=== PATIENT | male | born 1955 | race Caucasian/White ===

== ENCOUNTER 2018-10-16 10:45 | Inpatient (IN) | payer OTHER ==
[~2018-10-16] VITALS: Ht 175.3 cm; Wt 81.1 kg
[2018-10-16] MEDS ORDERED: ATOR20TA86 PO (11:23)
[2018-10-16] MEDS ORDERED: METH5TAB2 PO (11:23)
[2018-10-16] MEDS ORDERED: HYDR-3245 PO (11:23)
[2018-10-16] MEDS ORDERED: GABA600T2 PO (11:23)
[2018-10-16 11:26] VITALS: BP 116/78
[2018-10-16] MEDS ORDERED: LACTATED RINGERS 1,000 ML IV SCH (11:48)
[2018-10-16] MEDS ORDERED: BUPIVACAINE/PF-EPI 0.5% 1:200K ONE (13:18)
[2018-10-16] MEDS ORDERED: OXYcodone IR 5MG TABLET PO ONE (13:30)
[2018-10-16] MEDS ORDERED: GABAPENTIN 300 MG CAPSULE PO ONE (13:30)
[2018-10-16] MEDS ORDERED: ACETAMINOPHEN 500 MG TABLET PO ONE (13:30)
[2018-10-16] MEDS ORDERED: FENTANYL PF 250 MCG/5ML ONE ×2 (13:41→14:48)
[2018-10-16] MEDS ORDERED: MIDAZOLAM 1 MG/ML, 2ML ONE (13:54)
[2018-10-16] MEDS ORDERED: EPHEDRINE 50 MG/ML, 1ML ONE (13:57)
[2018-10-16] MEDS ORDERED: CEFOTETAN 2 GM ONE (13:57)
[2018-10-16] MEDS ORDERED: OXYcodone 5 MG/5 ML ORAL.SOL UDC PO PRN (15:00)
[2018-10-16] MEDS ORDERED: LABETALOL 5MG/ML, 20ML IV PRN (15:00)
[2018-10-16] MEDS ORDERED: MEPERIDINE/PF 25MG/0.5ML IVPush PRN (15:00)
[2018-10-16] MEDS ORDERED: DIPHENHYDRAMINE 50 MG/ML, 1ML IVPush PRN ×2 (15:00→19:30)
[2018-10-16] MEDS ORDERED: hydrALAzine 20 MG/ML, 1ML IV PRN (15:00)
[2018-10-16] MEDS ORDERED: HALOPERIDOL 5 MG/ML IV PRN (15:00)
[2018-10-16] MEDS ORDERED: PROMETHAZINE 25 MG/ML, 1ML IV PRN (15:00)
[2018-10-16] MEDS ORDERED: DEXAMETHASONE 4 MG/ML, 1ML ONE (16:04)
[2018-10-16] MEDS ORDERED: CEFAZOLIN 1,000 MG ONE (16:04)
[2018-10-16] MEDS ORDERED: PROPOFOL 10 MG/ML, 20ML ONE (16:04)
[2018-10-16] MEDS ORDERED: ONDANSETRON 2MG/ML, 2ML ONE (16:04)
[2018-10-16] MEDS ORDERED: GLYCOPYRROLATE 0.2MG/1ML, 5ML ONE (16:04)
[2018-10-16] MEDS ORDERED: SUCCINYLCHOLINE 20 MG/ML, 10ML ONE (16:04)
[2018-10-16] MEDS ORDERED: ROCURONIUM 10MG/ML,5ML ONE (16:04)
[2018-10-16] MEDS ORDERED: NEOSTIGMINE 1 MG/ML, 10ML ONE (16:04)
[2018-10-16] MEDS ORDERED: OXYcodone 5 MG/5 ML ORAL.SOL UDC ONE (17:14)
[2018-10-16] MEDS ORDERED: FENTANYL PF 100 MCG/2ML ONE (17:14)
[2018-10-16] MEDS: FENTANYL PF 100 MCG/2ML IV PRN ×2 (17:15→17:20)
[2018-10-16] MEDS ORDERED: HYDROmorphone 2 MG/ML, 1ML ONE (17:23)
[2018-10-16] MEDS: HYDROmorphone 2 MG/ML, 1ML IVPush PRN ×3 (17:25→17:45)
[2018-10-16] MEDS ORDERED: METHADONE 5 MG TABLET PO PRN (17:30)
[2018-10-16] MEDS ORDERED: KETOROLAC 30 MG/1 ML ONE (17:36)
[2018-10-16] MEDS ORDERED: KETOROLAC 30 MG/1 ML IVPush SCH (18:00)
[2018-10-16] MEDS ORDERED: KETOROLAC 30 MG/1 ML IVPush ONE (18:30)
[2018-10-16] MEDS ORDERED: DIPHENHYDRAMINE 25 MG CAPSULE PO PRN (19:30)
[2018-10-16] MEDS ORDERED: CALCIUM CARBONATE 500 MG TAB.CHEW PO PRN (19:30)
[2018-10-16] MEDS ORDERED: HALOPERIDOL 5 MG/ML IVPush PRN (19:30)
[2018-10-16] MEDS: LACTATED RINGERS 1,000 ML IV SCH (19:30)
[2018-10-16] MEDS ORDERED: ONDANSETRON 2MG/ML, 2ML IV PRN (19:30)
[2018-10-16] MEDS ORDERED: DEXAMETHASONE 4 MG/ML, 1ML IVPush PRN (19:30)
[2018-10-16] MEDS: KETOROLAC 30 MG/1 ML IVPush SCH (19:30)
[2018-10-16] MEDS ORDERED: LORazepam 2 MG/ML, 1ML IVPush PRN (19:30)
[2018-10-16] MEDS ORDERED: LORazepam 1MG TABLET PO PRN (19:30)
[2018-10-16] MEDS ORDERED: SCOPOLAMINE PATCH, 1.5MG PATCH.TD72 TD PRN (19:30)
[2018-10-16] MEDS: ACETAMINOPHEN 500 MG TABLET PO SCH (20:56)
[2018-10-17 00:20] VITALS: BP 114/77
[2018-10-17] MEDS: KETOROLAC 30 MG/1 ML IVPush SCH ×3 (01:30→13:11)
[2018-10-17] MEDS: ACETAMINOPHEN 500 MG TABLET PO SCH ×4 (03:17→21:04)
[2018-10-17 04:37] LABS: BASOPHILS # (AUTO) 0.01 x10^3/uL (0-0.1); BASOPHILS % (AUTO) 0 % (0-1); EOSINOPHILS % (AUTO) 0 % (1-7); LYMPHOCYTES # (AUTO) 1.14 x10^3/uL (1-3.4); LYMPHOCYTES % (AUTO) 12 % (22-44); MD NO; MEAN CORPUSCULAR HEMOGLOBIN 21.4 pg (27.5-34.5); MEAN CORPUSCULAR HGB CONC 31.4 g/dL (33.2-36.2); MEAN CORPUSCULAR VOLUME 68.2 fL (81-97); MEAN PLATELET VOLUME 7.3 fL (7.4-10.4); MONOCYTES % (AUTO) 10 % (2-9); NEUTROPHILS # (AUTO) 7.75 x10^3/uL (1.8-6.8); NEUTROPHILS % (AUTO) 78 % (42-75); PLATELET COUNT 410 x10^3/uL (130-400); RED BLOOD COUNT 5.08 x10^6/uL (4.38-5.82); RED CELL DISTRIBUTION WIDTH 17.1 % (9.4-14.8)
[2018-10-17 04:50] LABS: ANION GAP 9 mmol/L (5-15); CALCIUM 8.2 mg/dL (8.5-10.1); CHLORIDE 107 mmol/L (98-107)
[2018-10-17 04:52] LABS: CREATININE 1.35 mg/dL (0.7-1.3)
[2018-10-17 08:08] VITALS: BP 112/67
[2018-10-17] MEDS: ENOXAPARIN 40 MG/0.4 ML SQ SCH (08:38)
[2018-10-17] MEDS: LACTATED RINGERS 1,000 ML IV SCH (10:55)
[2018-10-17] MEDS: OXYcodone IR 5MG TABLET PO PRN (14:29)
[2018-10-17 14:38] VITALS: BP 118/68
[2018-10-17] MEDS: MORPHINE SULFATE 4 MG/ML, 1ML IVPush PRN ×2 (15:57→21:04)
[2018-10-17 19:14] VITALS: BP 134/74
[2018-10-18 00:20] VITALS: BP 115/63
[2018-10-18] MEDS: MORPHINE SULFATE 4 MG/ML, 1ML IVPush PRN (00:28)
[2018-10-18] MEDS: ACETAMINOPHEN 500 MG TABLET PO SCH ×2 (04:04→08:18)
[2018-10-18 05:43] LABS: ANION GAP 8 mmol/L (5-15); CALCIUM 7.7 mg/dL (8.5-10.1); CHLORIDE 107 mmol/L (98-107)
[2018-10-18 05:44] LABS: CREATININE 0.98 mg/dL (0.7-1.3)
[2018-10-18 05:47] LABS: BASOPHILS # (AUTO) 0.03 x10^3/uL (0-0.1); BASOPHILS % (AUTO) 0 % (0-1); EOSINOPHILS # (AUTO) 0.17 x10^3/uL (0-0.4); EOSINOPHILS % (AUTO) 2 % (1-7); LYMPHOCYTES # (AUTO) 1.79 x10^3/uL (1-3.4); LYMPHOCYTES % (AUTO) 22 % (22-44); MD NO; MEAN CORPUSCULAR HEMOGLOBIN 22.2 pg (27.5-34.5); MEAN CORPUSCULAR HGB CONC 32.6 g/dL (33.2-36.2); MEAN CORPUSCULAR VOLUME 68.2 fL (81-97); MEAN PLATELET VOLUME 7.7 fL (7.4-10.4); MONOCYTES # (AUTO) 0.82 x10^3/uL (0.2-0.8); MONOCYTES % (AUTO) 10 % (2-9); NEUTROPHILS # (AUTO) 5.52 x10^3/uL (1.8-6.8); NEUTROPHILS % (AUTO) 66 % (42-75); PLATELET COUNT 305 x10^3/uL (130-400); RED CELL DISTRIBUTION WIDTH 17.5 % (9.4-14.8)
[2018-10-18 07:17] VITALS: BP 118/73
[2018-10-18] MEDS: ENOXAPARIN 40 MG/0.4 ML SQ SCH (08:18)
[2018-10-18] MEDS ORDERED: OMNIPAQUE 350 MG/ML, 75ML BOTTLE ONE (08:51)
[2018-10-18] MEDS ORDERED: OXYC-302 PO (09:56)
[2018-10-18] MEDS: OXYcodone IR 5MG TABLET PO PRN (10:35)
[2018-10-18 10:36] VITALS: BP 117/65
== END 2018-10-18 10:55 | disposition home or self-care (01) | DRG 329 ==
LOC: ORIP 10:45 → 4NOR 18:31
PROVIDERS: ADMIT Colon & Rectal Surgery; ATTEND Colon & Rectal Surgery
PROC: 0DTF4ZZ Resection of Right Large Intestine, Percutaneous Endoscopic Approach (ICD-10-PCS; principal; 2018-10-16 13:00)
DX: C18.9 Malignant neoplasm of colon, unspecified (principal); N17.0 Acute kidney failure with tubular necrosis; K59.39 Other megacolon; E78.5 Hyperlipidemia, unspecified; E66.9 Obesity, unspecified; K66.0 Peritoneal adhesions (postprocedural) (postinfection); Z68.26 Body mass index [BMI] 26.0-26.9, adult; Z90.49 Acquired absence of other specified parts of digestive tract; Z79.899 Other long term (current) drug therapy; Z87.891 Personal history of nicotine dependence
CPT/HCPCS: 36415; 71260; 80048; 82962; 83735; 85025; 86850; 86900; 88307; 93005; G0378; J0690; J1100; J1170; J1650; J1885; J2250; J2405; J2704; J2710; J3010; J3490; Q9967; C1765; J0330; J7120

== ENCOUNTER → 2020-09-12 | Outpatient (CLI) | payer MEDICARE ==
[~2020-09-12] MED LIST: ATOR20TA86 PO; GABA600T7 PO; HYDR-3245 PO; METH5TAB2 PO; OMNIPAQUE 350 MG/ML, 100ML BOTTLE ONE; OXYC-302 PO
== END | disposition home or self-care (01) ==
LOC: CFH 12:53
PROVIDERS: ATTEND Internal Medicine
DX: C18.4 Malignant neoplasm of transverse colon (principal); K40.90 Unilateral inguinal hernia, without obstruction or gangrene, not specified as recurrent; N40.0 Benign prostatic hyperplasia without lower urinary tract symptoms; R91.8 Other nonspecific abnormal finding of lung field; Z90.49 Acquired absence of other specified parts of digestive tract
CPT/HCPCS: 71260; 74177; 82565; Q9967

== ENCOUNTER 2020-12-24 14:25 | Emergency (ER) | payer MEDICARE ==
[~2020-12-24] VITALS: Ht 175.3 cm; Wt 90.0 kg
[~2020-12-24 14:25] MED LIST changes: -HYDR-3245 PO; +HYDR1TAB53 PO; -OMNIPAQUE 350 MG/ML, 100ML BOTTLE ONE; -OXYC-302 PO; +OXYC1TAB14 PO
[2020-12-24] MEDS ORDERED: HYDROcodone/APAP 5/325 TABLET ONE (16:14)
[2020-12-24] MEDS ORDERED: HYDROcodone/APAP 5/325 TABLET PO ONE (16:30)
[2020-12-24] MEDS ORDERED: KETOROLAC 30 MG/1 ML IM ONE (17:00)
[2020-12-24] MEDS ORDERED: KETOROLAC 30 MG/1 ML ONE (17:06)
[2020-12-24 17:29] VITALS: BP 131/78
== END 2020-12-24 17:30 | disposition home or self-care (01) ==
LOC: ED 16:13
DX: M75.31 Calcific tendinitis of right shoulder (principal); M79.18 Myalgia, other site; M25.511 Pain in right shoulder; E78.5 Hyperlipidemia, unspecified; Z85.038 Personal history of other malignant neoplasm of large intestine; Z87.891 Personal history of nicotine dependence
CPT/HCPCS: 73030; 96372; 99283; J1885